=== PATIENT | male | born 1935 | race Two or more races ===

== ENCOUNTER → 2018-02-17 | Outpatient (CLI) | END | disposition home or self-care (01) ==

== ENCOUNTER → 2019-04-07 | Outpatient (CLI) | payer MEDICARE, OTHER ==
--- NOTE | 2019-04-07 18:12 | RADRPT ---
Echocardiogram Report Patient Name: ERWIN SWAINPatient ID: [id number] : 1935 (84y 3m)Study Date: 04/07/2019 11:05:29 AM Gender: MAccession #: [id number] Tech: Location: O Ref.Physician: BERNIE RODRIGUEZ Height(Cm): BSA: Weight(Kg): Quality: GoodOrder Physician: BERNIE RODRIGUEZ Account #: Procedures: Echocardiographic Report: Transthoracic echocardiogram with complete 2D, M-Mode, and doppler examination. Indications: Aortic Regurgitation. Measurements: 2D/M Mode Doppler Measurement Value Normal Range Measurement Value Normal Range LVIDd 2D 5.0 [ 4.2 - 5.8 ] cm AV Peak Justo 1.6 [ 100.0 - 170.0 ] cm/sec LVIDs 2D 3.4 [ 2.5 - 4.0 ] cm AV Peak PG 10.0 [ 2.0 - 9.0 ] mmHg LVPWd 2D 0.9 [ 0.6 - 1.0 ] cm LVOT Peak Justo 0.9 [ 70.0 - 110.0 ] cm/sec IVSd 2D 1.0 [ 0.6 - 1.0 ] cm LVOT Peak PG 3.0 [ 2.0 - 6.0 ] mmHg IVS/LVPW 2D 1.1 ratio MV E Peak Justo 0.6 [ 60.0 - 130.0 ] cm/sec AoR Diam 2D 2.7 [ 2.6 - 3.4 ] cm MV A Peak Justo 0.9 [ 100.0 - 120.0 ] cm/sec LA/Ao 2D 1 ratio MV E/A 0.6 [ 0.8 - 1.5 ] ratio LA Dimen 2D 3.3 [ 3.0 - 4.0 ] cm MV Decel Time 190 [ 104 - 258 ] msec Lat E` Justo 0.1 [ 10.0 - 15.0 ] cm/sec MV E/A 0.6 [ 0.8 - 1.5 ] ratio TR Peak Justo 2.1 [ 100.0 - 280.0 ] cm/sec TR Peak PG 18.0 mmHg RVSP 21.0 [ 10.0 - 36.0 ] mmHg RA Pressure 3.0 mmHg Findings: Left Ventricle: Normal left ventricular systolic function. Normal left ventricular cavity size. Normal left ventricular wall thickness. Ejection fraction is visually estimated at 60 %. Tissue Doppler/Mitral Doppler indices are consistent with impaired relaxation (Stage I diastolic dysfunction). Right Ventricle: Normal right ventricular size. Normal right ventricular systolic function. Left Atrium: The left atrium is normal in size. Right Atrium: The right atrium is normal in size. Mitral Valve: Normal appearance and function of the mitral valve with trace physiologic regurgitation. Aortic Valve: No hemodynamically significant aortic stenosis by doppler. Aortic cusps appear moderately calcified. Mild to moderate aortic valve regurgitation. Tricuspid Valve: Normal appearance of the tricuspid valve. The estimated Peak RVSP is 21 mmHg. There is trace tricuspid regurgitation. Pulmonic Valve: Normal pulmonic valve appearance. Pericardium: Normal pericardium with no significant pericardial effusion. Aorta: Normal aortic root. IVC: Normal size and normal respiratory collapse consistent with normal right atrial pressure. Conclusions: Normal left ventricular systolic function. Normal left ventricular cavity size. Normal left ventricular wall thickness. Ejection fraction is visually estimated at 60 %. Tissue Doppler/Mitral Doppler indices are consistent with impaired relaxation (Stage I diastolic dysfunction). Normal appearance and function of the mitral valve with trace physiologic regurgitation. No hemodynamically significant aortic stenosis by doppler. Aortic cusps appear moderately calcified. Mild to moderate aortic valve regurgitation. Normal appearance of the tricuspid valve. The estimated Peak RVSP is 21 mmHg. There is trace tricuspid regurgitation. Electronically Signed By: Bernie Rodriguez 2019-04-07 18:11:55 PDT
== END | disposition home or self-care (01) ==
LOC: EKG 10:18
PROVIDERS: ATTEND Internal Medicine
DX: I35.1 Nonrheumatic aortic (valve) insufficiency (principal); I10 Essential (primary) hypertension
CPT/HCPCS: 93306

== ENCOUNTER → 2019-07-07 | Outpatient (CLI) | payer MEDICARE, OTHER | END | disposition home or self-care (01) | LOC: EKG 13:00 | PROVIDERS: ATTEND Internal Medicine | DX: M79.605 Pain in left leg (principal); M79.604 Pain in right leg | CPT/HCPCS: 93306; 93922 ==